=== PATIENT | female | born 1945 | race Caucasian/White ===

== ENCOUNTER 2021-06-13 14:21 | Day surgery (SDC) | payer MEDICARE, BC ==
[2021-06-13] VITALS (9 sets, daily range): BP systolic 120–141; BP diastolic 61–98
[~2021-06-13] VITALS: Ht 165.1 cm; Wt 64.2 kg
[2021-06-13] MEDS ORDERED: LORazepam 0.5 MG tablet PO PRN (14:45)
[2021-06-13] MEDS ORDERED: normal saline 1,000 ML IV SCH (14:45)
[2021-06-13] MEDS ORDERED: diphenhydrAMINE 25mg capsule PO PRN (14:45)
[2021-06-13] MEDS ORDERED: EZET-59 PO (14:48)
[2021-06-13] MEDS ORDERED: GABA-530 PO (14:48)
[2021-06-13] MEDS ORDERED: AMLO10TA13 PO (14:48)
[2021-06-13] MEDS ORDERED: MIRA50TA PO (14:48)
[2021-06-13] MEDS ORDERED: METO-395 PO (14:48)
[2021-06-13] MEDS ORDERED: HYDR12.55 PO (14:48)
[2021-06-13] MEDS ORDERED: LISI10TA27 PO (14:48)
[2021-06-13 15:21] LABS: APTT 24 SECONDS (22-32)
[2021-06-13 15:23] LABS: ANION GAP 12 (8-16); BLOOD UREA NITROGEN 16 MG/DL (7-18); CALCIUM 9.1 MG/DL (8.5-10.1); CHLORIDE 108 MMOL/L (99-107); GLUCOSE 85 MG/DL (70-104); POTASSIUM 3.6 MMOL/L (3.5-5.1); SODIUM 147 MMOL/L (135-145); eGFR 69 ML/MIN
[2021-06-13 15:30] LABS: BASOPHILS % (AUTO) 0.6 % (0-1); EOSINOPHILS # (AUTO) 0.2 X10'3 (0-0.9); EOSINOPHILS % (AUTO) 3.7 % (0-6); HEMATOCRIT 42.1 % (35.0-45.0); HEMOGLOBIN 14.1 g/dl (12.0-16.0); LYMPHOCYTES # (AUTO) 1.3 X10'3 (1.1-4.8); LYMPHOCYTES % (AUTO) 21.7 % (21-51); MEAN CORPUSCULAR HEMOGLOBIN 31.3 PG (27.0-31.0); MEAN CORPUSCULAR HGB CONC 33.4 g/dL (33.0-36.5); MEAN CORPUSCULAR VOLUME 93.7 FL (78-98); MEAN PLATELET VOLUME 8.1 FL (7.4-10.4); MONOCYTES # (AUTO) 0.7 X10'3 (0-0.9); MONOCYTES % (AUTO) 11.3 % (2-12); NEUTROPHILS # (AUTO) 3.8 X10'3 (1.8-7.7); NEUTROPHILS % (AUTO) 62.7 % (42-75); PLATELET COUNT 244 X10'3 (140-440); RED CELL DISTRIBUTION WIDTH 13.9 % (11.5-14.5); WHITE BLOOD COUNT 6.1 X10'3 (4.5-11.0)
[2021-06-13] MEDS ORDERED: nitroGLYCERIN-Tridil 50MG/D5W 250 ML IV ONE (16:08)
[2021-06-13] MEDS ORDERED: LIDOcaine 1% (10mg/ml)w/preservative injection 20ml MDV ONE (16:09)
[2021-06-13] MEDS ORDERED: fentaNYL/PF 50MCG/1 ML 2ML syringe ONE (16:09)
[2021-06-13] MEDS ORDERED: heparin 1,000unit/ml 10ml vial 10 ML ONE (16:09)
[2021-06-13] MEDS ORDERED: verapamil 2.5 mg/ml inj IV ONE (16:09)
[2021-06-13] MEDS ORDERED: midazolam 1 mg/ML 2ml injection ONE (16:09)
[2021-06-13] MEDS ORDERED: iohexol 350MG/ML 100ml bottle IV ONE ×2 (16:09→17:12)
[2021-06-13] MEDS ORDERED: clopidogrel 300mg tablet ONE (17:14)
[2021-06-13] MEDS ORDERED: aspirin 325mg tablet ONE (17:14)
== END 2021-06-13 20:50 | disposition home or self-care (01) ==
LOC: SSTAY O 14:21
PROVIDERS: ATTEND Internal Medicine Interventional Cardiology
DX: R94.39 Abnormal result of other cardiovascular function study (principal); R06.09 Other forms of dyspnea; I25.10 Atherosclerotic heart disease of native coronary artery without angina pectoris; I10 Essential (primary) hypertension; I47.1 Supraventricular tachycardia; E78.5 Hyperlipidemia, unspecified; I65.29 Occlusion and stenosis of unspecified carotid artery; Z95.0 Presence of cardiac pacemaker; Z79.899 Other long term (current) drug therapy; Z91.040 Latex allergy status; Z87.891 Personal history of nicotine dependence
CPT/HCPCS: 36415; 80048; 85025; 85610; 85730; 93005; 93458; 99152; 99153; C1725; C1751; C1769; C1874; C1894; C9600; J1644; J2250; J3010; J3490; J7030; Q0163; Q9967; A4620; A5120

== ENCOUNTER 2021-09-29 05:42 | Emergency (ER) | payer MEDICARE, BC ==
[~2021-09-29] VITALS: Ht 165.1 cm; Wt 63.4 kg
[~2021-09-29 05:42] MED LIST: AMLO10TA13 PO; EZET-59 PO; GABA-530 PO; HYDR12.55 PO; LISI10TA27 PO; METO-395 PO; MIRA50TA PO
[2021-09-29 06:18] LABS: CLARITY,URINE SLIGHTLY CLOUDY (Clear); COLOR,URINE YELLOW (Yellow); GLUCOSE, URINE NEGATIVE (Neg); KETONES,URINE NEGATIVE (Neg); LEUKOCYTE ESTERASE ,URINE MODERATE (Neg); NITRITES, URINE NEGATIVE (Neg); OCCULT BLOOD,URINE SMALL (Neg); PROTEIN,URINE NEGATIVE (Neg); UROBILINOGEN,URINE 0.2 E.U/dL (0.2-1.0)
[2021-09-29 06:24] LABS: UA COLLECTION TYPE CLN CATCH MIDSTREAM
[2021-09-29 06:26] LABS: BACTERIA,URINE 1+ /HPF (Neg); MUCUS STRANDS NONE SEEN /LPF (Neg); SQUAMOUS EPITHELIAL CELL,UR FEW /LPF (FEW); WBC CLUMPS,URINE FEW /HPF (NEGATIVE); WBC,URINE 50-100 /HPF (0-4)
[2021-09-29] MEDS ORDERED: nitrofurantoin macrocrystal 100mg capsule PO SCH (06:55)
[2021-09-29] MEDS ORDERED: phenazopyridine 100mg tablet PO ONE (06:55)
[2021-09-29] MEDS ORDERED: NITR100C6 PO (06:59)
[2021-09-29] MEDS ORDERED: PHEN-824 PO (06:59)
[2021-09-29 07:10] VITALS: BP 131/73
== END 2021-09-29 07:11 | disposition home or self-care (01) ==
LOC: ER 05:43
DX: N39.0 Urinary tract infection, site not specified (principal); R30.0 Dysuria; E78.00 Pure hypercholesterolemia, unspecified; I10 Essential (primary) hypertension; Z85.3 Personal history of malignant neoplasm of breast; Z91.040 Latex allergy status; Z79.899 Other long term (current) drug therapy
CPT/HCPCS: 81001; 87088; 99283

== ENCOUNTER 2023-08-02 07:02 | Emergency (ER) | payer MEDICARE, BC ==
[~2023-08-02] VITALS: Ht 165.1 cm; Wt 65.2 kg
[~2023-08-02 07:02] MED LIST changes: +NITR100C6 PO; +PHEN-824 PO
[2023-08-02 07:13] VITALS: BP 136/73; PULSE 78; RESP 18; O2SAT 98
[2023-08-02 07:43] VITALS: TEMP 98
== END 2023-08-02 07:46 | disposition home or self-care (01) ==
LOC: ER 07:03
DX: R04.0 Epistaxis (principal); Z91.040 Latex allergy status; E78.00 Pure hypercholesterolemia, unspecified; I10 Essential (primary) hypertension; Z85.3 Personal history of malignant neoplasm of breast
CPT/HCPCS: 99281

== ENCOUNTER 2024-07-02 08:12 | Outpatient (CLI) | payer MEDICARE, BC | END 2024-07-02 23:59 | disposition home or self-care (01) | LOC: RAD 08:12 | PROVIDERS: ATTEND Anesthesiology | DX: M47.26 Other spondylosis with radiculopathy, lumbar region (principal); M48.061 Spinal stenosis, lumbar region without neurogenic claudication | CPT/HCPCS: 72131 ==

== ENCOUNTER 2024-10-13 09:16 | Emergency (ER) | payer MEDICARE, BC ==
[~2024-10-13] VITALS: Ht 165.1 cm; Wt 64.5 kg
[~2024-10-13 09:16] MED LIST changes: +ASPI-611 PO; +CHOL100025 PO; +D-MA1POW; +LEVO75TA7 PO; -MIRA50TA PO; -NITR100C6 PO; +VIBE75TA
--- NOTE | 2024-10-13 09:26 | ELECTROCARDIOGRAPH REPORT ---
[facility] Test Date: 2024-10-13 Test Time: 09:25:04 Pat Name: JOIE CROW Department: [facility] Patient ID: [facility]-[id number] Room: Gender: F [employer]: : 1945 Requested By: JHONNY ALMANZA Order Number: [id number] Reading MD: Measurements Intervals [place] Rate: 78 P: 27 IN: 142 QRS: 57 QRSD: 83 T: 57 QT: 374 QTc: 426 Interpretive Statements Sinus rhythm Baseline wander in lead(s) V2 Please click the below link to view image of tracing.
--- NOTE | 2024-10-13 09:50 | Physician Documentation ---
History of Present Illness ~ Chief Complaint: Chest Pain Stated Complaint: CHEST PAIN/LEG WEAKNESS Time Seen by MD: 13:32 HPI This is an 79-year-old female with history of pacemaker and cardiac stent who presents with one-week of nonradiating chest pain to entire chest worse with deep breathing and movement, patient reports additional pain to her left lower back. Patient reports accompanying shortness of breath and nausea without vomiting. States that currently she has no pain however she is very nauseous and if she starts to move around she gets very short of breath. She reports that she feels like something is not right and that she feels sick. She denies any fever, chills, vomiting or any other associated symptoms. Medication Reconciliation Allergies: Coded Allergies: latex (Unverified Allergy, Unknown, 06/07/15) Scheduled Amlodipine Besylate (Amlodipine Besylate), 1 TAB PO DAILY, (Reported) Aspirin (Aspir 81), 1 TAB PO DAILY, (Reported) Cholecalciferol (Vitamin D), 5 TAB PO DAILY, (Reported) Ezetimibe/Simvastatin (Ezetimibe-Simvastatin 10-20 mg), 1 TAB PO HS, (Reported) Gabapentin (Gabapentin), 2 CAP PO BID, (Reported) Hydrochlorothiazide (Hydrochlorothiazide), 1 TAB PO DAILY, (Reported) Levothyroxine Sodium (Levothyroxine Sodium), 1 TAB PO DAILY, (Reported) Lisinopril (Lisinopril), 1 TAB PO DAILY, (Reported) Metoprolol Succinate (Metoprolol Succinate), 1 TAB PO DAILY, (Reported) Miscellaneous Medications D-Mannose (D-Mannose), (Reported) Vibegron (Gemtesa), (Reported) Discontinued Medications Phenazopyridine HCl (Pyridium), 1 TAB PO Q12H Discontinued Reason: patient no longer taking Phenazopyridine HCl (Pyridium), 1 TAB PO Q8H, (Reported) Discontinued Reason: patient no longer taking Past Medical History Past Medical History: High Cholesterol, Hypertension, Breast Cancer Past Surgical History: no surgical history Alcohol Use: None Drug Use: none Lives In: Home Occupation: retired Review of Systems ROS Chest pain and low back pain as stated above in the HPI, otherwise all systems are reviewed and negative. Physical Exam Vital Signs: Temperature: 97.8, Source: Temporal, Heart Rate: 78, Respiratory Rate: 18, BP: 180/69, Pulse Oximetry: 97, Weight: 64.550 Oxygen Flow Rate: 0 Physical Exam I have reviewed the triage vitals. CONST: Well developed and well nourished. In no acute distress HENT: Head Atraumatic EYES: Pupils are equal, round and reactive to light. Normal conjunctiva NECK: Normal range of motion. Supple. CARDIO: Normal rate and regular rhythm. No murmurs, rubs, or gallops. S1, S2. PULM/CHEST: No respiratory distress. Lungs clear to auscultation. No wheeze ABD: Soft and nontender. Nondistended. Bowel sounds normal. No guarding. : Exam deferred MSK: No edema. No deformity. NEURO: Alert and oriented to person, place and time. Moving all extremities SKIN: Warm and dry. PSYCH: Normal mood and affect. Good eye contact. Progress Results/Orders Results/Orders Orders - JHONNY ALMANZA MD Chest,Single View (10/13/24 09:19) Monitor (10/13/24 09:19) Saline Lock (10/13/24 09:19) Oxygen (10/13/24 09:19) Hs Troponin I W Calculations (10/13/24 12:19) Nitroglycerin Sublingual Tab (Nitrostat (10/13/24 09:35) Culture Blood (10/13/24 13:58) Page Hospitalist (10/13/24 16:58) Fill Out Med Reconciliation (10/13/24 16:58) Completed Orders - JHONNY ALMANZA MD Chest,Single View (10/13/24 09:19) Cbc/Diff (10/13/24 09:19) Electrocardiogram (10/13/24 09:19) Hs Troponin I W Calculations (10/13/24 09:19) Hs Troponin I W Calculations (10/13/24 11:19) CMP (10/13/24 09:19) Aspirin 81mg Chew Tablet (Aspirin 81mg C (10/13/24 09:35) Lacticsepsis (10/13/24 13:58) Ondansetron Inj. (Zofran 4mg/2ml Vial) (10/13/24 14:00) Normal Saline 1000ml (Sodium Chloride 10 (10/13/24 14:00) Ua W/Microscopic, Cult If Ind (10/13/24 14:42) Medications Received in ER Medications (Trade) Dose Ordered Sig/Bonifacio Route PRN Reason Start Time Stop Time Status Last Admin Dose Admin (Zofran 4mg/2ml vial) 4 mg ONCE ONCE IV 10/13/24 14:00 10/13/24 14:01 DC 10/13/24 15:47 4 MG Sodium Chloride 1,000 ml @ 1,000 mls/hr ONCE ONCE IV 10/13/24 14:00 10/13/24 14:59 DC 10/13/24 15:47 1,000 MLS/HR Vital Signs 10/13/24 10/13/24 10/13/24 10/13/24 09:24 14:18 15:20 15:50 Temp 97.8 Pulse 78 60 64 Resp 18 10 13 B/P (MAP) 180/69 185/75 (111) 146/60 (88) Pulse Ox 97 97 98 99 O2 Delivery Room Air* O2 Flow Rate 0 0 FiO2 N/A 10/13/24 10/13/24 16:16 16:19 Pulse 65 Resp 13 12 B/P (MAP) 143/60 (87) Pulse Ox 99 Laboratory Tests Test 10/13/24 09:30 10/13/24 12:31 10/13/24 14:42 10/13/24 15:14 White Blood Count 7.4 Red Blood Count 4.97 Hemoglobin 15.6 Hematocrit 45.9 H Mean Corpuscular Volume 92.2 Mean Corpuscular Hemoglobin 31.3 H Mean Corpuscular Hemoglobin Concent 33.9 Red Cell Distribution Width 14.1 Platelet Count 283 Mean Platelet Volume 8.0 Neutrophils (%) (Auto) 70.0 Lymphocytes (%) (Auto) 19.8 L Monocytes (%) (Auto) 8.1 Eosinophils (%) (Auto) 1.4 Basophils (%) (Auto) 0.7 Neutrophils # (Auto) 5.2 Lymphocytes # (Auto) 1.5 Monocytes # (Auto) 0.6 Eosinophils # (Auto) 0.1 Basophils # (Auto) 0.1 CBC Comment Miscellaneous Test See comment Sodium Level 135 Potassium Level 3.7 Chloride Level 101 Carbon Dioxide Level 24.3 Anion Gap 10 Blood Urea Nitrogen 11 Creatinine 0.86 Estimated GFR/1.73 m2 63 BUN/Creatinine Ratio 12.8 Glucose Level 103 Calcium Level 9.5 Total Bilirubin 0.6 Aspartate Amino Transf (AST/SGOT) 29 Alanine Aminotransferase (ALT/SGPT) 25 Alkaline Phosphatase 101 Troponin I High Sensitivity 6 6 Total Protein 8.2 Albumin 4.2 Globulin 4.0 Albumin/Globulin Ratio 1.1 Chemistry Comments Troponin I High Sens Percent Delta 0 Troponin I Hi Sens Absolute Change 0 Urine Specimen Description Urinal Urine Color Straw Urine Clarity Clear Urine pH 6.5 Urine Specific [place] <=1.005 Urine Protein Negative Urine Glucose (UA) Negative Urine Ketones Trace H Urine Occult Blood Trace-intact Urine Nitrite Negative Urine Bilirubin Negative Urine Urobilinogen 0.2 Urine Leukocyte Esterase Negative Urine RBC 0-2 Urine WBC None seen Urine Squamous Epithelial Cells Moderate Urine Transitional Epithelial Cells Few Urine Bacteria None seen Urine Mucus Few Urine Culture Indicated Not ind Volume Urine Centrifuged 10 ml Urine Comment Lactic Acid Level 1.4 Medical Decision Making Findings MSE performed in triage and patient returned to ED lobby by nursing staff to await available ED room, ACS protocol initiated by nursing staff. Differential Dx:Considerations: Include: angina, aortic dissection, chest wall pain, cholelithiasis, costochondritis, esophageal reflux/spasm, gastritis, herpes zoster, myocardial infarction, pericarditis, pleuritis, pancreatitis, pneumonia, pulmonary embolus Departure Disposition: 01 HOME / SELF CARE / HOMELESS Admitted to Inpatient Unit: to hospitalist Admission Level of Care: Med/Surg with Tele Impression: Primary Impression: Dehydration Additional Impression: Weakness Discharge Instructions: Dehydration, Adult Additional Instructions: Please ensure you drink plenty of fluids. Referrals: NO PRIMARY CARE PROVIDER (PCP) Additional Comment Additional Comment Patient was offered admission for further treatment and evaluation but stated that she feels much better and would prefer to go home. She declined the admission. MICHAEL NAYAK Oct 13, 2024 09:50 JHONNY ALMANZA MD Oct 13, 2024 13:57
[2024-10-13 09:56] LABS: BASOPHILS # (AUTO) 0.1 X10'3 (0-0.2); BASOPHILS % (AUTO) 0.7 % (0-1); EOSINOPHILS # (AUTO) 0.1 X10'3 (0-0.9); EOSINOPHILS % (AUTO) 1.4 % (0-6); HEMATOCRIT 45.9 % (35.0-45.0); HEMOGLOBIN 15.6 g/dl (12.0-16.0); LYMPHOCYTES # (AUTO) 1.5 X10'3 (1.1-4.8); LYMPHOCYTES % (AUTO) 19.8 % (21-51); MEAN CORPUSCULAR HEMOGLOBIN 31.3 PG (27.0-31.0); MEAN CORPUSCULAR HGB CONC 33.9 g/dL (33.0-36.5); MEAN CORPUSCULAR VOLUME 92.2 FL (78-98); MONOCYTES # (AUTO) 0.6 X10'3 (0-0.9); MONOCYTES % (AUTO) 8.1 % (2-12); NEUTROPHILS # (AUTO) 5.2 X10'3 (1.8-7.7); PLATELET COUNT 283 X10'3 (140-440); RED BLOOD COUNT 4.97 X10'6 (4.20-5.60); RED CELL DISTRIBUTION WIDTH 14.1 % (11.5-14.5); WHITE BLOOD COUNT 7.4 X10'3 (4.5-11.0)
--- NOTE | 2024-10-13 10:05 | RADIOLOGY REPORT ---
EXAM: DI CHEST,SINGLE VIEW Indication: CP Technique: Single frontal view of the chest was obtained Comparison: None FINDINGS: Lines and Tubes: Cardiac pacemaker projects over left chest wall. Lungs: No focal consolidation. Pleura: No effusion. No pneumothorax. Cardiomediastinal contours: Unremarkable. Atherosclerotic vascular calcifications of the thoracic ao rta are noted. Bones: No acute osseous abnormality. IMPRESSION: No acute cardiopulmonary disease.
[2024-10-13 10:31] LABS: ALANINE AMINOTRANSFERASE 25 U/L (12-78); ALBUMIN 4.2 G/DL (3.4-5.0); ALBUMIN/GLOBULIN RATIO 1.1 (1.1-1.5); ALKALINE PHOSPHATASE 101 IU/L (46-116); ANION GAP 10 (8-16); ASPARTATE AMINO TRANSFERASE 29 U/L (10-37); BILIRUBIN,TOTAL 0.6 MG/DL (0.1-1.0); BLOOD UREA NITROGEN 11 MG/DL (7-18); BUN/CREATININE RATIO 12.8 (10.0-20.0); CALCIUM 9.5 MG/DL (8.5-10.1); CHLORIDE 101 MMOL/L (99-107); CREATININE 0.86 MG/DL (0.40-0.90); GLUCOSE 103 MG/DL (70-104); POTASSIUM 3.7 MMOL/L (3.5-5.1); SODIUM 135 MMOL/L (135-145); TOTAL CARBON DIOXIDE 24.3 MMOL/L (24-32); TOTAL PROTEIN 8.2 G/DL (6.4-8.2); eCRCL 46 ML/MIN; eGFR 63 ML/MIN
[2024-10-13] MEDS: nitroGLYCERIN 0.4mg SUBLingual tab SL PRN (13:48)
[2024-10-13] MEDS: aspirin 81mg tab.chew PO ONE (13:48)
[2024-10-13 14:53] LABS: BILIRUBIN,URINE NEGATIVE (Neg); CLARITY,URINE CLEAR (Clear); COLOR,URINE STRAW (Yellow); GLUCOSE, URINE NEGATIVE (Neg); KETONES,URINE TRACE mg/dl (Neg); LEUKOCYTE ESTERASE ,URINE NEGATIVE (Neg); NITRITES, URINE NEGATIVE (Neg); OCCULT BLOOD,URINE TRACE-INTACT (Neg); PH,URINE 6.5 (4.8-8.0); PROTEIN,URINE NEGATIVE (Neg); UROBILINOGEN,URINE 0.2 E.U/dL (0.2-1.0)
[2024-10-13 15:01] LABS: UA COLLECTION TYPE URINAL
[2024-10-13 15:04] LABS: BACTERIA,URINE NONE SEEN /HPF (Neg); RBC,URINE 0-2 /HPF (0-2); WBC,URINE NONE SEEN /HPF (0-4)
[2024-10-13 15:05] LABS: MUCUS STRANDS FEW /LPF (Neg); SQUAMOUS EPITHELIAL CELL,UR MODERATE /LPF (FEW); TRANSITIONAL EPI CELLS,URINE FEW /HPF
[2024-10-13] MEDS: ondansetron/PF 4mg/2ml inj IV ONE (15:47)
[2024-10-13] MEDS: normal saline 1000ml 1,000 ML IV ONE (15:47)
[2024-10-13] MEDS ORDERED: HYDROcodone/acetaminophen 5mg/325mg tablet PO PRN (17:15)
[2024-10-13] MEDS ORDERED: acetaminophen 325mg tablet PO PRN ×2 (17:15)
[2024-10-13] MEDS ORDERED: potassium Cl 20 mEq SR tablet PO PRN ×2 (17:15)
[2024-10-13] MEDS ORDERED: magnesium sulf-water 4G/100mL 100 ML IV PRN (17:15)
[2024-10-13] MEDS ORDERED: magnesium Cl slow-release 64mg tablet PO PRN (17:15)
[2024-10-13] MEDS ORDERED: potassium Cl 40MEQ/1/2NS 520ml 520 ML IV PRN (17:15)
[2024-10-13] MEDS ORDERED: ondansetron/PF 4mg/2ml inj IV PRN (17:15)
[2024-10-13] MEDS ORDERED: morphine 2 MG/ML inj. syringe IV PRN (17:15)
[2024-10-13] MEDS ORDERED: magnesium sulf-water 2g/50mL 50 ML IV PRN (17:15)
[2024-10-13] MEDS ORDERED: metoprolol tartrate 1mg/ml inj IV PRN (17:20)
[2024-10-13] MEDS ORDERED: nitroGLYCERIN 0.4mg SUBLingual tab SL PRN (17:20)
[2024-10-13] MEDS ORDERED: aminophylline 500mg/20ml vial IV PRN (17:20)
[2024-10-13] MEDS ORDERED: regadenoson 0.4mg/5ml syringe IV PRN (17:20)
[2024-10-13 17:58] VITALS: BP 149/64; PULSE 72; RESP 12; TEMP 98.2; O2SAT 99
[2024-10-13] MEDS: heparin, porcine 5000 units/ml vial SQ SCH (18:27)
== END 2024-10-13 18:01 | disposition home or self-care (01) ==
LOC: ER 09:17 → ED HOLD 17:17 → UNDOADMIN 17:17 → UNDODISIN 18:01
DX: E86.0 Dehydration (principal); R07.9 Chest pain, unspecified; R06.02 Shortness of breath; M54.50 Low back pain, unspecified; E78.00 Pure hypercholesterolemia, unspecified; I10 Essential (primary) hypertension; Z95.0 Presence of cardiac pacemaker; Z88.8 Allergy status to other drugs, medicaments and biological substances; Z85.3 Personal history of malignant neoplasm of breast
CPT/HCPCS: 36415; 71045; 80053; 81001; 83605; 84484; 85025; 87040; 93005; 96361; 96374; 99285; J2405; J7030; G0378